=== PATIENT | female | born 1975 | race Two or more races ===

== ENCOUNTER → 2024-05-13 | Outpatient (CLI) | payer BC, SELFPAY ==
[2024-05-13 09:34] LABS: Misc Send Out* See Sep Rpt
[2024-05-13 10:28] LABS: Basophils # (Auto) 0.1 Thou/mm3 (0.0-0.2); Basophils % (Auto) 1 % (0-2.5); Eosinophils # (Auto) 0.1 Thou/mm3 (0.0-0.5); Eosinophils % (Auto) 2 % (0-10); Hematocrit 40.7 % (36.0-46.0); Immature Granulocytes % (Auto) 0 % (0-0); Immature Granulocytes Auto 0.01 Thou/mm3 (0.00-0.00); Lymphocytes # (Auto) 1.8 Thou/mm3 (1.0-4.8); Lymphocytes % (Auto) 35 % (10-50); Mean Corpuscular HGB Conc 34.4 g/dl (31.0-37.0); Mean Corpuscular Hemoglobin 28.2 pg (25.0-35.0); Mean Corpuscular Volume 82 fL (80-100); Monocytes # (Auto) 0.3 Thou/mm3 (0.0-0.8); Monocytes % (Auto) 5 % (0-12); Neutrophils # (Auto) 3.1 Thou/mm3 (1.8-7.7); Neutrophils % (Auto) 58 % (37-80); Nucleated Red Blood Cell % 0 /100 WBC (0); Platelet Count 240 Thou/mm3 (140-440); RDW Standard Deviation 37.3 fL (36.4-46.3); Red Blood Count 4.96 Miln/mm3 (4.00-5.20); White Blood Count 5.3 Thou/mm3 (3.6-11.0)
[2024-05-13 10:53] LABS: Alanine Aminotransferase 13 U/L (10-49); Albumin, Serum 4.8 gm/dL (3.5-5.0); Albumin/Globulin Ratio 1.9 (1.2-2.2); Alkaline Phosphatase 79 U/L (46-116); Anion Gap 8 (7-16); Aspartate Amino Transferase 12 U/L (0-34); BUN/Creatinine Ratio 22 Ratio (12-20); Bilirubin,Total 0.4 mg/dL (0.3-1.2); Blood Urea Nitrogen 13 mg/dL (9-23); C-Reactive Protein 1.2 mg/dL (0.0-0.9); Calcium 9.6 mg/dL (8.3-10.6); Calcium (Corrected) 9.6 mg/dL (8.5-10.1); Carbon Dioxide 28.2 mMol/L (20.0-31.0); Chloride 105 mMol/L (98-107); Creatinine (Component) 0.6 mg/dL (0.6-1.3); Free T4 (Free Thyroxine) 1.29 ng/dL (0.89-1.76); Globulin 2.5 gm/dL (2.3-3.5); Glucose 89 mg/dL (74-106); Osmolality,Calculated 280 (275-295); Potassium 4.1 mMol/L (3.4-5.1); Sodium 141 mMol/L (136-145); Thyroid Stimulating Hormone 1.14 uIU/mL (0.55-4.78); Total Protein 7.3 gm/dL (5.7-8.2); eGFR > 60 See Note
[2024-05-13 11:56] LABS: Sed Rate (ESR) 27 mm/hr (0-20)
[2024-05-22 15:35] LABS: Cardiolipin Ab (IgA) <2.0 APL-U/mL; Cardiolipin Ab (IgG) <2.0 GPL-U/mL; Sjogren's antibody (SS-A) <1.0 NEG AI (<1.0 NEGATIVE); Sm Antibody <1.0 NEG AI (<1.0 NEGATIVE)
[2024-05-23 06:47] LABS: Cardiolipin Ab (IgM) <2.0 MPL-U/mL; Complement Component C3* 168 mg/dL (83-193); Complement Component C4c* 32 mg/dL (15-57); DNA (ds) Antibody* <1 IU/mL; Sjogren's Antibody (SS-B) <1.0 NEG AI (<1.0 NEGATIVE); Sm/RNP Antibody <1.0 NEG AI (<1.0 NEGATIVE); Thyroid Peroxidase Antibodies* 1 IU/mL (<9)
== END | disposition home or self-care (01) ==
LOC: COPL 08:36
PROVIDERS: PCP Internal Medicine; Referring Provider Internal Medicine; Visit Provider Internal Medicine
DX: E78.5 Hyperlipidemia, unspecified (principal); I10 Essential (primary) hypertension; I83.893 Varicose veins of bilateral lower extremities with other complications; K58.1 Irritable bowel syndrome with constipation; L30.9 Dermatitis, unspecified; R51.9 Headache, unspecified; R53.82 Chronic fatigue, unspecified; R73.09 Other abnormal glucose; R76.8 Other specified abnormal immunological findings in serum; Z82.69 Family history of other diseases of the musculoskeletal system and connective tissue
CPT/HCPCS: 36415; 80053; 83516; 84439; 84443; 85025; 85652; 86038; 86140; 86146; 86147; 86160; 86162; 86225; 86235; 86376; 86880

== ENCOUNTER → 2024-05-24 | Outpatient (CLI) | payer BC, SELFPAY ==
[2024-06-03 06:36] LABS: (tTG) Ab, IgA <1.0 U/mL; (tTG) Ab, IgG <1.0 U/mL; Gliadin(Deamidated)Ab,IgA 1.8 U/mL; Gliadin(Deamidated)Ab,IgG <1.0 U/mL; IgA, Serum* 174 mg/dL (47-310); IgE, Serum* 30 kU/L (114 OR LESS)
== END | disposition home or self-care (01) ==
LOC: COPL 11:56
PROVIDERS: PCP Internal Medicine; Referring Provider Allergy & Immunology; Visit Provider Allergy & Immunology
DX: T78.1XXA Other adverse food reactions, not elsewhere classified, initial encounter (principal)
CPT/HCPCS: 36415; 82784; 82785; 86258; 86364

== ENCOUNTER → 2024-12-01 | Outpatient (CLI) | payer BC, SELFPAY ==
[2024-12-01 09:37] LABS: Misc Send Out* See Sep Rpt
[2024-12-01 09:48] LABS: Collection Type, Urine Clean Catch
[2024-12-01 10:40] LABS: Basophils # (Auto) 0.0 Thou/mm3 (0.0-0.2); Basophils % (Auto) 1 % (0-2.5); Eosinophils # (Auto) 0.1 Thou/mm3 (0.0-0.5); Eosinophils % (Auto) 2 % (0-10); Hematocrit 41.2 % (36.0-46.0); Hemoglobin 13.9 g/dL (12.0-16.0); Immature Granulocytes Auto 0.01 Thou/mm3 (0.00-0.00); Lymphocytes # (Auto) 1.6 Thou/mm3 (1.0-4.8); Lymphocytes % (Auto) 32 % (10-50); Mean Corpuscular HGB Conc 33.7 g/dl (31.0-37.0); Mean Corpuscular Hemoglobin 28.5 pg (25.0-35.0); Mean Corpuscular Volume 85 fL (80-100); Monocytes # (Auto) 0.2 Thou/mm3 (0.0-0.8); Monocytes % (Auto) 5 % (0-12); Neutrophils # (Auto) 3.1 Thou/mm3 (1.8-7.7); Neutrophils % (Auto) 61 % (37-80); Nucleated Red Blood Cell # 0.00 Thou/mm3 (0.00-0.00); Nucleated Red Blood Cell % 0 /100 WBC (0); Platelet Count 272 Thou/mm3 (140-440); RDW Standard Deviation 41.3 fL (36.4-46.3); Red Blood Count 4.87 Miln/mm3 (4.00-5.20); White Blood Count 5.1 Thou/mm3 (3.6-11.0)
[2024-12-01 10:54] LABS: Bilirubin,Urine Negative (Negative); Blood,Urine Negative (Negative); Calcium Oxalate Crystals,Urine Rare; Clarity,Urine Clear (Clear/Hazy); Color,Urine Lt-Yellow (Lt Yel-Yel); Glucose, Urine Negative (Negative); Ketones,Urine Negative (Negative); Leukocyte Esterase,Urine Negative (Negative); Nitrite,Urine Negative (Negative); PH,Urine 5.5 (5.0-7.0); Protein,Urine Negative (Neg - Trace); RBC,Urine 2 /hpf (0-3); Specific Gravity,Urine 1.015 (1.001-1.035); Squamous Epithelial Cell,Urine 1 /hpf (0-5); Urobilinogen,Urine Negative mg/dL (0.0-1.0); WBC,Urine 2 /hpf (0-5)
[2024-12-01 11:11] LABS: Alanine Aminotransferase 11 U/L (10-49); Albumin, Serum 4.6 gm/dL (3.5-5.0); Albumin/Globulin Ratio 1.8 (1.2-2.2); Alkaline Phosphatase 91 U/L (46-116); Anion Gap 8 (7-16); Aspartate Amino Transferase 21 U/L (0-34); BUN/Creatinine Ratio 9 Ratio (12-20); Bilirubin,Total 0.3 mg/dL (0.3-1.2); Blood Urea Nitrogen 6 mg/dL (9-23); Calcium 10.0 mg/dL (8.3-10.6); Calcium (Corrected) 10.0 mg/dL (8.5-10.1); Carbon Dioxide 26.6 mMol/L (20.0-31.0); Chloride 106 mMol/L (98-107); Creatinine (Component) 0.7 mg/dL (0.6-1.3); Globulin 2.6 gm/dL (2.3-3.5); Glucose 93 mg/dL (74-106); Osmolality,Calculated 278 (275-295); Potassium 4.0 mMol/L (3.4-5.1); Sodium 141 mMol/L (136-145); Thyroid Stimulating Hormone 1.17 uIU/mL (0.55-4.78); Total Protein 7.2 gm/dL (5.7-8.2); eGFR > 60 See Note
[2024-12-01 12:17] LABS: Vitamin B12 411 pg/mL (211-911); Vitamin D 25 Hydroxy Total 22.2 ng/mL (7.3-40.2)
[2024-12-01 12:19] LABS: Ferritin 127 ng/mL (7.3-270.7)
[2024-12-01 13:03] LABS: Sed Rate (ESR) 8 mm/hr (0-20)
[2024-12-01 14:22] LABS: Cholesterol 202 mg/dL (132-200); Triglycerides 170 mg/dL (30-150); Uric Acid 4.1 mg/dL (3.1-7.8)
[2024-12-01 16:31] LABS: Glucose Estimated Average 97 mg/dL (80-131); Hemoglobin A1C 5.0 % Hgb (4.8-6.0)
[2024-12-01 16:44] LABS: Cardiac Risk Estimate 4.1 RATIO (3.7-5.6); HDL Cholesterol 49 mg/dL (40-60); LDL Cholesterol,Calculated 119 mg/dL (0-130)
[2024-12-01 18:03] LABS: C-Reactive Protein 0.2 mg/dL (0.0-0.9)
== END | disposition home or self-care (01) ==
LOC: COPL 09:15
PROVIDERS: PCP Internal Medicine; Referring Provider Internal Medicine
DX: Z00.00 Encounter for general adult medical examination without abnormal findings (principal); I10 Essential (primary) hypertension; E78.5 Hyperlipidemia, unspecified; K58.1 Irritable bowel syndrome with constipation; L30.9 Dermatitis, unspecified; M79.18 Myalgia, other site; R51.9 Headache, unspecified; R53.82 Chronic fatigue, unspecified; R76.8 Other specified abnormal immunological findings in serum; Z82.69 Family history of other diseases of the musculoskeletal system and connective tissue
CPT/HCPCS: 36415; 80053; 80061; 81001; 82306; 82607; 82728; 83013; 83014; 83036; 84443; 84550; 85025; 85652; 86003; 86140

== ENCOUNTER 2025-04-08 17:20 | Emergency (ER) | payer BC, SELFPAY ==
[2025-04-08 18:29] VITALS: BP 143/93; PULSE 84; RESP 18; TEMP 36.9; O2SAT 100
--- NOTE | 2025-04-08 18:46 | XR_ITS ---
Examination: Duplex scan of the lower extremity, unilateral left complete Date and time of exam: April 08, 2025, 1948 hours INDICATIONS: Left calf pain and swelling beginning 1 week ago Technique: Duplex scan of the extremity veins using B-mode/grayscale imaging and Doppler spectral analysis and color flow Attention is directed to internal echogenicity, compression and augmentation involving these veins, color flow assessment, spectral analysis Findings: Major deep venous structures in the extremity demonstrate normal course and caliber. There is no evidence of deep vein thrombosis. Normal color flow and spectral analysis Impression: Negative for DVT..
[2025-04-08 19:20] LABS: Basophils # (Auto) 0.1 Thou/mm3 (0.0-0.2); Basophils % (Auto) 1 % (0-2.5); Eosinophils # (Auto) 0.1 Thou/mm3 (0.0-0.5); Eosinophils % (Auto) 1 % (0-10); Hematocrit 41.3 % (36.0-46.0); Hemoglobin 14.1 g/dL (12.0-16.0); Immature Granulocytes Auto 0.01 Thou/mm3 (0.00-0.00); Lymphocytes # (Auto) 2.1 Thou/mm3 (1.0-4.8); Lymphocytes % (Auto) 28 % (10-50); Mean Corpuscular HGB Conc 34.1 g/dl (31.0-37.0); Mean Corpuscular Hemoglobin 28.4 pg (25.0-35.0); Mean Corpuscular Volume 83 fL (80-100); Monocytes # (Auto) 0.4 Thou/mm3 (0.0-0.8); Monocytes % (Auto) 5 % (0-12); Neutrophils # (Auto) 4.7 Thou/mm3 (1.8-7.7); Neutrophils % (Auto) 65 % (37-80); Nucleated Red Blood Cell # 0.00 Thou/mm3 (0.00-0.00); Nucleated Red Blood Cell % 0 /100 WBC (0); Platelet Count 264 Thou/mm3 (140-440); RDW Standard Deviation 39.7 fL (36.4-46.3); Red Blood Count 4.96 Miln/mm3 (4.00-5.20); White Blood Count 7.3 Thou/mm3 (3.6-11.0)
[2025-04-08 19:21] LABS: HCG Qualitative,Urine Negative
[2025-04-08 19:44] LABS: Alanine Aminotransferase 10 U/L (10-49); Albumin, Serum 4.6 gm/dL (3.5-5.0); Albumin/Globulin Ratio 1.4 (1.2-2.2); Alkaline Phosphatase 80 U/L (46-116); Anion Gap 12 (7-16); Aspartate Amino Transferase 16 U/L (0-34); BUN/Creatinine Ratio 8 Ratio (12-20); Bilirubin,Total 0.4 mg/dL (0.3-1.2); Blood Urea Nitrogen 6 mg/dL (9-23); Calcium 10.0 mg/dL (8.3-10.6); Calcium (Corrected) 10.0 mg/dL (8.5-10.1); Carbon Dioxide 24.5 mMol/L (20.0-31.0); Chloride 107 mMol/L (98-107); Creatine Kinase 97 U/L (34-171); Creatinine (Component) 0.8 mg/dL (0.6-1.3); Globulin 3.4 gm/dL (2.3-3.5); Glucose 95 mg/dL (74-106); Osmolality,Calculated 282 (275-295); Potassium 4.2 mMol/L (3.4-5.1); Sodium 143 mMol/L (136-145); Total Protein 8.0 gm/dL (5.7-8.2); eGFR > 60 See Note
--- NOTE | 2025-04-08 20:17 | PD.EDRME ---
Rapid Medical Screening Exam RME Arrival date/time: 04/08/25 17:20 This is a case of 49-year-old female who came into the emergency room due to left lower extremity pain with swelling for 3 days persistence of the symptoms thus patient decided to sought consult here in the emergency room Chief Complaint: Extremity Problem,Nontraumatic Time Seen by Provider: 04/08/25 18:33 Vital signs: Vital Signs Temperature 98.4 F 04/08/25 18:29 Pulse Rate 84 04/08/25 18:29 Respiratory Rate 18 04/08/25 18:29 Blood Pressure 143/93 H 04/08/25 18:29 Pulse Oximetry (%) 100 04/08/25 18:29 Oxygen Delivery Method Room Air 04/08/25 18:29 Exam: Moderate tenderness left posterior leg Clinical Impression: Left lower extremity pain
--- NOTE | 2025-04-08 21:25 | PD.EDEXREM ---
ED Extremity Problem RME/HPI General Chief complaint: Extremity Problem,Nontraumatic Stated complaint: poss. blood clot left calf Time Seen by Provider: 04/08/25 18:33 Arrival date/time: 04/08/25 17:20 49-year-old female patient with significant history of sciatica, came in for evaluation regarding left lower leg medial pain has been ongoing for the last few days. Severity of symptoms moderate. Denies any redness or swelling. Patient is ambulatory denies any trauma or fall denies any fever. Patient is worried about having DVT. RME / HPI RME / HPI Narrative: 04/08/25 17:20 This is a case of 49-year-old female who came into the emergency room due to left lower extremity pain with swelling for 3 days persistence of the symptoms thus patient decided to sought consult here in the emergency room Exam: Moderate tenderness left posterior leg Impression: Left lower extremity pain Related Data Home Medications ?Medication ?Instructions ?Recorded ?Confirmed acetaminophen-caffeine 500 mg-65 1 tab PO Q6H PRN Headache 06/09/19 06/09/19 mg tablet (Excedrin Tension Headache) Previous Rx's ?Medication ?Instructions ?Recorded ibuprofen 800 mg tablet 800 mg PO TID PRN pain #30 tabs 06/09/19 Allergies Allergy/AdvReac Type Severity Reaction Status Date / Time hydrocodone Allergy Severe Difficulty Verified 04/08/25 17:24 Breathing Review of Systems Review of Systems Narrative Review of Systems: Review of system reviewed and within normal limits except mentioned in HPI ED Exam Narrative Physical exam: VITAL SIGNS: Reviewed. GENERAL APPEARANCE: Alert and interactive, follows commands, no acute distress, HEAD AND FACE: Non-traumatic. ENT: PERRL, pink conjunctivitis, eyelid no trauma, Mucous membrane moist. NECK: Supple, nontender, no nuchal rigidity. CHEST: No tenderness, no crepitus, no paradoxical movement, no retractions. LUNGS: Clear, well ventilated, symmetric, no rales, no wheezing, no ronchi, no stridor, good breath sounds bilaterally. HEART: Regular rate, regular rhythm, no murmur, no gallops. ABDOMEN: Soft, positive bowel sounds, nondistended, no guarding, nontender, no rebound, no masses, RECTAL: Deferred. GENITAL: Deferred. NEUROLOGICAL: Gross motor function intact sensory function intact, Appropriate for age. MUSCULOSKELETAL: low back nontender, full range of motion. EXTREMITIES: Left lower leg medial tenderness no swelling no masses palpated, full range of motion. SKIN: Color pink, dry, no rash, no lacerations, no abrasions, no contusions. LYMPHATICS: Deferred. Course Quality Measures none Orders Category Date Time Status US venous doppler LE LT Stat Exams 04/08/25 18:46 Completed CBC Stat Lab 04/08/25 18:58 Completed Comprehensive Metabolic Panel Stat Lab 04/08/25 18:58 Completed Creatine Kinase Stat Lab 04/08/25 18:58 Completed HCG Qualitative,Urine Stat Lab 04/08/25 19:07 Completed Vital Signs Vital signs: Vital Signs Temperature 98.4 F 04/08/25 18:29 Pulse Rate 84 04/08/25 18:29 Respiratory Rate 18 04/08/25 18:29 Blood Pressure 143/93 H 04/08/25 18:29 Pulse Oximetry (%) 100 04/08/25 18:29 Oxygen Delivery Method Room Air 04/08/25 18:29 Extremity Problem MDM Narrative MDM Narrative:: 49-year-old female patient with significant history of sciatica, came in for evaluation regarding left lower leg medial pain has been ongoing for the last few days. Severity of symptoms moderate. Denies any redness or swelling. Patient is ambulatory denies any trauma or fall denies any fever. Patient is worried about having DVT. Patient's workup came back normal. Patient ultrasound of the leg also came back with no DVT. Results discussed with the patient. Patient data External records reviewed:: None Clinical information provided by:: patient Social determinants that could affect healthcare access:: none Patient has the following chronic illnesses:: Sciatica How is presenting disease/condition affected by chronic disease/condition?: exacerbated by Evaluation data The following diagnostics were reviewed and interpreted by me:: lab results and radiology exam(s) Lab and/or radiology exams considered but not ordered:: None Interpretation Summary: See above Medications / Prescriptions Medications or Prescriptions considered but not ordered:: None Medication administrations:: None Consultations Consultation(s) initiated? (list below): No Diagnosis Extremity Problem Differential Diagnosis: lower extremity edema and deep vein thrombosis of lower extremity Most likely diagnosis given after review of the tests above:: Leg pain Admission Indicated Admission indicated?: not indicated Admission Request Was there a request for admission?: No Disposition Plan Disposition Plan: Discharge Discharge Attestation Discharge Attestation: The patient was given an opportunity to ask questions and understood the discharge instructions. Discharge instructions specifically effects, indications for sooner follow up or return to the emergency department, and the expected course of current diagnosis. Patient condition: Stable Discharge Plan Plan Patient Disposition: HOME (Self Care) Discharge Disposition comment: Stable Prescriptions/Referrals Prescriptions/Med Rec: No Action Excedrin Tension Headache 500-65 mg Tablet 1 tab PO Q6H PRN (Reason: Headache) ibuprofen 800 mg tablet 800 mg PO TID MDD 3 PRN (Reason: pain) Qty: 30 0RF Referrals: Trevon Gilbert MD [Primary Care Provider, Nephrology] - In 1 week Problem List Clinical Impression: Acute leg pain Patient/Caregiver Discharge Instructions Discharge Activity: activity as tolerated Education Materials: Understanding the Pain Response Additional Instructions: Thank you for the opportunity for serving you today. You are stable for discharged . You are advised to: Follow-up with your PCP in 1 to 2 days Return to ED for worsening of symptoms Increase oral fluids take your pain medication as needed. Ultrasound of your lower extremity is negative for DVT. Print Language: Bel[place]ian Stand Alone Forms: Padmini Award Info., Patient Portal Info Letter CAROLIN/JENN Supervising Physician CAROLIN/JENN Supervising Physician: Md paige
== END 2025-04-08 21:30 | disposition home or self-care (01) ==
PROVIDERS: Nurse Practitioner Family; Emergency Provider Emergency Medicine; PCP Internal Medicine
DX: M79.605 Pain in left leg (principal)
CPT/HCPCS: 36415; 80053; 81025; 82550; 85025; 93971; 99283